=== PATIENT | male | born 1970 ===

== ENCOUNTER 2021-12-11 06:33 | Day surgery (SDC) | payer BC ==
[~2021-12-11 06:33] MED LIST: Lactated Ringers 1,000 ML IV SCH
[2021-12-11] MEDS ORDERED: Xylocaine-Mpf 2% 5 Ml Vial ONE (07:50)
[2021-12-11] MEDS ORDERED: DIPRIVAN 200 MG/20 ML IV ONE (07:50)
[2021-12-11 09:25] VITALS: BP 134/75; PULSE 63; O2SAT 98
--- NOTE | 2021-12-11 09:42 | OP ---
SURGERY DATE/TIME: 12/11/2021 0802 PREOPERATIVE DIAGNOSIS: Rectal bleeding. POSTOPERATIVE DIAGNOSIS: Normal colon. PROCEDURE: Colonoscopy. SURGEON: Dr. Rodriguez. ANESTHESIA: MAC. Medications given by anesthesia department. HISTORY: The patient is a 51-year-old white male who reports he has been having intermittent rectal bleeding for up to two years. He denies any change in his stools otherwise. There is cancer in his family but he does not remember anybody particularly who had colon cancer. The patient was felt to need to have endoscopic evaluation and was appraised of the risks of the procedure including the risk of perforation, phlebitis, untoward reaction to medication, bleeding and missed lesions. The patient verbalized his understanding and desired to have the procedure performed. DESCRIPTION OF PROCEDURE: The patient was given the medications by the anesthesia department. He had continuous pulse oximetry, ECG monitoring, intermittent blood pressure monitoring during the examination. He was placed in the left lateral decubitus position. A digital rectal examination was performed and revealed normal anal sphincter tone, no masses, no significant hemorrhoids and normal prostate. The flexible Olympus pediatric colonoscope was used to intubate the rectum. A view of the colon was developed sequentially to the cecum appeared to be approximately 20 cm into the terminal ileum. Upon insertion and withdrawal, including a retroflex view in the rectum, no mucosal lesions were encountered. The scope was removed from the patient who tolerated the procedure well and was sent back to OP recovery in good condition. The prep was noted to be fair to poor.
== END 2021-12-11 09:15 | disposition home or self-care (01) ==
LOC: SDC 06:33
PROVIDERS: ATTEND Family Medicine
DX: K62.5 Hemorrhage of anus and rectum (principal); Z80.9 Family history of malignant neoplasm, unspecified
CPT/HCPCS: J2704